=== PATIENT | female | born 1975 | race Caucasian/White ===

== ENCOUNTER 2017-01-03 12:31 | Emergency (ER) | payer BC, OTHER ==
[2017-01-03] MEDS ORDERED: predniSONE 20 MG Tab PO ONE (14:30)
[2017-01-03] MEDS ORDERED: Take Home: Ketorolac 10 MG Tab, 4 Tab Pack PO ONE (14:39)
[2017-01-03] MEDS ORDERED: Take Home: Ketorolac 10 MG Tab, 4 Tab Pack ONE (14:44)
--- NOTE | 2017-01-04 11:58 | ER ---
Date of Service: 01/03/2017 SUBJECTIVE: The patient presents to the emergency room with complaints of pain to the distal interphalangeal joint of the second digit of the right hand. The patient states that she was doing some cleaning, when she began experiencing discomfort in the finger. She states that she is not experiencing any paresthesia distal to the area of injury. She states that she has had issues with discomfort in that finger in past. PAST MEDICAL HISTORY: 1. Asthma. 2. Uterine ablation. MEDICATIONS: None. ALLERGIES: To milk, azithromycin, erythromycin, iodine, shellfish, tomato, and bee venom. REVIEW OF SYSTEMS: Denies any numbness or tingling distal to the area of injury. PHYSICAL EXAMINATION: General: This is a 41-year-old female patient, who is in no acute distress. Vital Signs: Temperature is 36.6, pulse rate is 96, respiratory rate is 16, O2 saturations 97%. Skin: Warm, pink, and dry. HEENT. Head is normocephalic, atraumatic. MUSCULOSKELETAL: The tip of the patient's right finger is exquisitely tender. No obvious step-offs or deformity noted. Neurovascular, circulation, sensation, and motor function all within normal limits in distal portion of extremity. RADIOGRAPHIC DATA: Radiographs of the patient's right index finger were obtained. No evidence of any acute fracture were noted. ASSESSMENT: Flexor and extensor tendinitis to the tip of the right index finger. PLAN: The patient will be discharged. Ice the area for 10 to 15 minutes every 1 to 2 hours. Prednisone 40 mg daily for 5 days. Indomethacin 50 mg 3 times daily for discomfort and inflammation. All questions were answered. RYANK: 01/04/2017 06:43:54 MODL: 01/04/2017 11:06:02 /[id number]
== END 2017-01-03 14:45 | disposition home or self-care (01) ==
LOC: VM.ED 12:31
DX: M77.9 Enthesopathy, unspecified (principal); J45.909 Unspecified asthma, uncomplicated; Z91.011 Allergy to milk products; Z88.1 Allergy status to other antibiotic agents; Z91.013 Allergy to seafood; Z91.030 Bee allergy status; Z91.018 Allergy to other foods
CPT/HCPCS: 73140; 99283; A9270

== ENCOUNTER 2018-04-13 00:40 | Emergency (ER) | payer OTHER ==
--- NOTE | 2018-04-13 01:04 | EDM.PDOC ---
ED HPI GENERAL MEDICAL PROBLEM - General Chief Complaint: General Stated Complaint: Feels like choking, SOB Time Seen by Provider: 04/13/18 00:41 Source of Information: Reports: Patient, Family, RN, RN Notes Reviewed History Limitations: Reports: No Limitations - History of Present Illness INITIAL COMMENTS - FREE TEXT/NARRATIVE: Patient presents to the ED at [facility] complaining of a FB sensation in her throat and dysphagia. Patient states she took a Tessalon Pearle for a cough and shortly after, started coughing so hard she had projectile vomiting. She states after vomiting she is unable to feel the back of her throat, she is unable to swallow, and feels some SOB. Patient was seen by her PCP today for asthma related symptoms. The was started on the cough medication earlier today. She has taken this medication in the past. The patient felt she is having some sort of allergic reaction. Onset: Today, Sudden Onset Date: 04/13/18 Onset Time: 00:20 - Related Data Allergies Allergy/AdvReac Type Severity Reaction Status Date / Time milk Allergy Severe Anaphylactic Verified 01/03/17 19:40 Shock azithromycin [From Zithromax] Allergy Vomiting Verified 01/03/17 19:40 erythromycin base Allergy Nausea and Verified 01/03/17 19:40 Vomiting iodine Allergy Anaphylactic Verified 01/03/17 19:40 Shock shellfish derived Allergy Anaphylactic Verified 01/03/17 19:40 Shock tomato Allergy Hives Verified 01/03/17 19:40 venom-honey bee Allergy Anaphylactic Verified 01/03/17 19:40 [bee venom (honey bee)] Shock seafood Allergy Anaphylactic Uncoded 01/03/17 19:40 Shock Home Meds: Home Meds Benzonatate 100 mg PO TID PRN 04/13/18 [History] Fluticasone Furoate [Arnuity Ellipta] 1 spray NASBOTH BID 04/13/18 [History] Montelukast [Singulair] 10 mg PO DAILY 04/13/18 [History] Omeprazole Magnesium [Prilosec Otc] 20 mg PO BEDTIME 04/13/18 [History] Past Medical History Respiratory History: Reports: Asthma 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) Other OB/BYN History: uterine ablation Musculoskeletal History: Reports: Other (See Below) Neurological History: Reports: Other (See Below) - Past Surgical History Female Surgical History: Reports: Section, Endometrial Ablation Social & Family History - Family History Family Medical History: Noncontributory ED ROS GENERAL - Review of Systems Review Of Systems: See Below Constitutional: Denies: Fever, Chills, Weakness HEENT: Reports: Throat Swelling, Other (swallowing problem; numbness of posterior oropharynx) Respiratory: Reports: Shortness of Breath, Cough Cardiovascular: Denies: Chest Pain, Palpitations GI/Abdominal: Denies: Abdominal Pain, Nausea, Vomiting Skin: Reports: No Symptoms Neurological: Reports: No Symptoms ED EXAM, GENERAL - Physical Exam Exam: See Below Exam Limited By: No Limitations General Appearance: Alert, No Apparent Distress Throat/Mouth: Normal Inspection, Normal Oropharynx, No Airway Compromise Neck: Normal Inspection, Supple Respiratory/Chest: No Respiratory Distress, Lungs Clear, Normal Breath Sounds Cardiovascular: Normal Peripheral Pulses, Regular Rate, Rhythm Peripheral Pulses: 2+: Radial (L), Radial (R) GI/Abdominal: Normal Bowel Sounds, Soft, Non-Tender Neurological: Alert, Oriented Psychiatric: Anxious Skin Exam: Warm, Dry, Intact, Normal Color Course - Vital Signs Last Recorded V/S: Last Vital Signs Temp 37.0 C 04/13/18 00:40 Pulse 78 04/13/18 00:40 Resp 28 H 04/13/18 00:40 BP 145/92 H 04/13/18 00:40 Pulse Ox 100 04/13/18 00:40 - Orders/Labs/Meds Orders: Active Orders 24 hr Category Date Time Status Soft Tissue Neck wo Cont [CT] Stat Exams 04/13/18 01:04 Taken Meds: Medications Discontinued Medications Generic Name Dose Route Start Last Admin Trade Name Basilq PRN Reason Stop Dose Admin Hydroxyzine HCl 50 mg 04/13/18 01:08 04/13/18 01:30 Vistaril IM 04/13/18 01:09 50 mg ONETIME ONE Administration Departure - Departure Time of Disposition: 01:56 Disposition: Home, Self-Care 01 Condition: Good Clinical Impression: Acute bronchospasm - Discharge Information Instructions: Bronchospasm, Adult Referrals: Mary Emerson MD [Physician] - Forms: ED Department Discharge Additional Instructions: 1. Stay well hydrated and rest 2. May continue to take cough medication; do not crush or chew, swallow whole 3. See your PCP as symptoms warrant 4. Call us with any questions or concerns - Problem List Review Problem List Initiated/Reviewed/Updated: Yes - My Orders Last 24 Hours: My Active Orders 04/13/18 01:04 Soft Tissue Neck wo Cont [CT] Stat - Assessment/Plan Last 24 Hours: My Active Orders 04/13/18 01:04 Soft Tissue Neck wo Cont [CT] Stat Assessment:: Bronchospasm Plan: CT of Neck normal. Hydroxyzine worked well for anxiety issues related to throat complaint. Discussed with patient an effect of the Tessalon Pearle is an anesthetic like reaction which can affect the throat. Recommend taking the Tessalon Pearle carefully only when needed. May want to talk with PCP about this ER visit.
[2018-04-13] MEDS: hydrOXYzine HCl 50 MG/ML SDV IM ONE (01:30)
[2018-04-13 02:19] VITALS: BP 119/71
== END 2018-04-13 02:05 | disposition home or self-care (01) ==
LOC: VM.ED 00:40
DX: J98.01 Acute bronchospasm (principal); Z91.013 Allergy to seafood; Z88.1 Allergy status to other antibiotic agents; Z88.8 Allergy status to other drugs, medicaments and biological substances; Z91.011 Allergy to milk products; Z79.899 Other long term (current) drug therapy
CPT/HCPCS: 70490; 96372; 99284; J3410

== ENCOUNTER 2023-02-28 08:12 | Emergency (ER) | payer OTHER ==
[2023-02-28] MEDS ORDERED: Sodium Chloride 0.9% 10 ML Syringe FLUSH PRN (09:05)
[2023-02-28] MEDS ORDERED: Ondansetron 4 MG/2 ML SDV IVPUSH ONE (09:07)
[2023-02-28] MEDS ORDERED: Lactated Ringers 1,000 ML IV ONE (09:07)
[2023-02-28] MEDS ORDERED: HYDROmorphone 0.5 MG/0.5 ML Syringe IVPUSH ONE (09:08)
[2023-02-28 09:26] LABS: PTT,PARTIAL THROMBOPLSTIN TIME 27.4 SEC (23.6-33.6)
[2023-02-28 09:28] LABS: CHLORIDE,CL 105 mmol/L (98-107); SODIUM,NA 139 mmol/L (136-145)
[2023-02-28 09:30] LABS: ANION GAP 7.8 mmol/L (5-15); ESTIMATED GFR 107 mL/min (>=60)
[2023-02-28] MEDS ORDERED: Iopamidol 612 MG/ML 100 ML Bottle IVPUSH ONE (10:02)
[2023-02-28 10:12] VITALS: BP 117/69; PULSE 79
[2023-02-28] MEDS ORDERED: Metoclopramide 10 MG/2 ML SDV IVPUSH ONE (11:04)
[2023-02-28] MEDS ORDERED: HYDROmorphone 1 MG/ML Syringe IVPUSH ONE (11:04)
[2023-02-28] MEDS ORDERED: Take Home: Ondansetron 4 MG Tab.DIS, 5 Tab Pack PO ONE (11:27)
[2023-02-28] MEDS ORDERED: Take Home: Acetaminophen/HYDROcodone 325-5 MG, 5 Tab Pack PO ONE (11:27)
== END 2023-02-28 11:55 | disposition home or self-care (01) ==
LOC: SUPCPDRO 08:12 → MERGE 08:12 → VM.ED 08:12
DX: K52.9 Noninfective gastroenteritis and colitis, unspecified (principal); J45.909 Unspecified asthma, uncomplicated; E66.9 Obesity, unspecified; Z68.24 Body mass index [BMI] 24.0-24.9, adult; Z88.1 Allergy status to other antibiotic agents; Z91.018 Allergy to other foods; Z91.012 Allergy to eggs; Z91.013 Allergy to seafood; Z91.041 Radiographic dye allergy status; Z91.011 Allergy to milk products; Z90.710 Acquired absence of both cervix and uterus
CPT/HCPCS: 74177; 80053; 81003; 82150; 83605; 83690; 83735; 85025; 85610; 85730; 86140; 96361; 96374; 96375; 96376; 99284; 99284-25; A9270-GY; J1170; J2405; J2765; J3490; J7120; Q0162; Q9967

== ENCOUNTER 2023-05-13 07:25 | Day surgery (SDC) | payer OTHER ==
[~2023-05-13 07:25] MED LIST: Lactated Ringers 1,000 ML IV SCH
[2023-05-13] MEDS ORDERED: fentaNYL 100 MCG/2 ML SDV ONE (08:03)
[2023-05-13] MEDS ORDERED: Propofol 200 MG/20 ML SDV ONE ×3 (08:03→09:59)
[2023-05-13 11:05] VITALS: BP 116/66; PULSE 52
== END 2023-05-13 11:35 | disposition home or self-care (01) ==
LOC: VM.SDS 07:25
PROVIDERS: ATTEND Family Medicine
DX: K52.9 Noninfective gastroenteritis and colitis, unspecified (principal); D12.6 Benign neoplasm of colon, unspecified; K63.5 Polyp of colon; K62.89 Other specified diseases of anus and rectum; F43.20 Adjustment disorder, unspecified; J45.909 Unspecified asthma, uncomplicated; E66.9 Obesity, unspecified; Z98.890 Other specified postprocedural states; Z98.84 Bariatric surgery status; Z83.79 Family history of other diseases of the digestive system; Z68.25 Body mass index [BMI] 25.0-25.9, adult; Z79.899 Other long term (current) drug therapy; Z88.1 Allergy status to other antibiotic agents; Z91.012 Allergy to eggs; Z88.8 Allergy status to other drugs, medicaments and biological substances; Z91.011 Allergy to milk products; Z91.018 Allergy to other foods; Z91.199 Patient's noncompliance with other medical treatment and regimen due to unspecified reason
CPT/HCPCS: 00811; J2704; J3010; J7120

== ENCOUNTER 2024-07-10 08:18 | Emergency (ER) | payer OTHER ==
[2024-07-10] MEDS: methylPREDNISolone Sodium Succinate 125 MG/2 ML SDV IVPUSH ONE (08:37)
[2024-07-10] MEDS: diphenhydrAMINE 50 MG/ML SDV IVPUSH ONE (08:40)
[2024-07-10 09:56] VITALS: BP 129/87; PULSE 91
== END 2024-07-10 09:49 | disposition home or self-care (01) ==
LOC: VM.ED 08:18
DX: T78.40XA Allergy, unspecified, initial encounter (principal); J45.909 Unspecified asthma, uncomplicated; Z79.899 Other long term (current) drug therapy; Z88.0 Allergy status to penicillin; Z88.1 Allergy status to other antibiotic agents; Z88.2 Allergy status to sulfonamides; Z88.8 Allergy status to other drugs, medicaments and biological substances; Z91.018 Allergy to other foods; Z91.011 Allergy to milk products; Z91.041 Radiographic dye allergy status; Z91.013 Allergy to seafood; Z91.030 Bee allergy status; Z91.012 Allergy to eggs; Z88.6 Allergy status to analgesic agent
CPT/HCPCS: 96374; 96375; 99283; J1200; J2919